=== PATIENT | female | born 1975 | race Caucasian/White ===

== ENCOUNTER 2021-03-16 13:10 | Emergency (ER) | payer OTHER ==
[2021-03-16] MEDS ORDERED: Morphine 4 MG/ML VIAL ONE (13:26)
[2021-03-16] MEDS ORDERED: Ondansetron PF 4 MG/2 ML Vial ONE (13:26)
[2021-03-16 13:38] LABS: Hemoglobin 14.8 g/dL (12.0-16.0); Mean Corpuscular HGB CONC 32.1 g/dL (32.0-36.0); Mean Corpuscular Volume 96.3 fL (78.0-98.0); Mean Platelet Volume 8.3 fL (7.4-10.4); Platelet Count 340 thou/uL (130-400); RBC Distribution Width 11.9 % (11.5-14.5); Red Blood Cell (RBC) Count 4.79 mill/uL (4.20-5.40); White Blood Cell (WBC) Count 6.4 thou/uL (4.8-10.8)
[2021-03-16 13:43] LABS: Bilirubin Negative (Negative); Blood, Urine Moderate (Negative); Clarity Slightly Cloudy (Clear); Glucose, Urine (Dipstick) Negative (Negative); Ketone, Urine Negative (Negative); Leukocyte Negative (Negative); Nitrite Negative (Negative); Protein, Urine (Dipstick) Negative (Neg-Trace); Urobilinogen 0.2 mg/dL (Less than 2); pH, Urine 5.5 (5.0-9.0)
[2021-03-16 13:47] LABS: Squamous Epithelial 0-3 HPF (0-3); WBC/HPF 0-3 HPF (0-3)
[2021-03-16 13:48] LABS: BHCG - Serum Negative (NEGATIVE); Pregs Control Bar Appear? YES (CONTROL BAR)
[2021-03-16 13:48] LABS: Calcium Oxalate Crystals 2+ HPF (None Seen)
[2021-03-16 13:54] LABS: ALT (SGPT) 26 U/L (8-55); AST (SGOT) 20 U/L (5-34); Albumin 4.1 g/dL (3.5-5.0); Alkaline Phosphatase 110 U/L (40-110); Anion Gap 12 mmol/L (10-20); BUN (Urea Nitrogen) 14 mg/dL (7.0-18.7); Bilirubin, Total 0.3 mg/dL (0.2-1.2); Calc. Creatinine Clearance 0 mL/min (70-130); Calcium 9.7 mg/dL (7.8-10.44); Carbon Dioxide 24 mmol/L (22-29); Chloride 106 mmol/L (98-107); Globulin 3.1 g/dL (2.4-3.5); Glucose 120 mg/dL (70-105); Lipase 7 U/L (8-78); Potassium 3.9 mmol/L (3.5-5.1); Protein, Total 7.2 g/dL (6.0-8.3); Sodium 138 mmol/L (136-145)
[2021-03-16 13:57] LABS: Band 3 % (5-11); Lymphocytes 30 % (21-51); MDiff Complete? YES; Monocytes 17 % (0-10); Neutrophil 47 % (42-75)
[2021-03-16 13:58] LABS: Anisocytosis SLIGHT = 6-15 cells (100X) (0-5/hpf); Eosinophils 3 % (0-10); Platelet Morphology Comment Appears Adequate
[2021-03-16 14:20] LABS: Specific Gravity, Urine 1.034 (1.002-1.036)
[2021-03-16] MEDS ORDERED: Sodium Chloride 0.9% 1,000 ML BAG ONE (14:57)
== END 2021-03-16 14:53 | disposition home or self-care (01) ==
LOC: NAV ERS 13:10
DX: N13.2 Hydronephrosis with renal and ureteral calculous obstruction (principal); B34.9 Viral infection, unspecified; J45.909 Unspecified asthma, uncomplicated; Z79.82 Long term (current) use of aspirin
CPT/HCPCS: 74176; 80053; 81003; 81015; 83605; 83690; 84703; 85025; 96374; 96375; J2270; J2405; J7050